=== PATIENT | male | born 1955 | race African-American/Black ===

== ENCOUNTER 2018-05-23 23:19 | Emergency (ER) | payer OTHER ==
[2018-05-24 03:26] LABS: #Basophils 0.1 thou/uL (0.0-0.2); #Eosinphils 0.4 thou/uL (0.0-0.7); #Lymphocytes 2.3 thou/uL (1.20-3.40); #Neutrophils 4.6 thou/uL (1.40-6.50); %Eosinophils 5.1 % (0.0-10.0); %Lymphocytes 27.4 % (21.0-51.0); %Monocytes 12.2 % (0.0-10.0); %Neutrophils 54.4 % (42.0-75.0); Hemoglobin 14.4 g/dL (14.0-18.0); Mean Corpuscular HGB CONC 33.1 g/dL (32.0-36.0); Mean Corpuscular Hemoglobin 30.1 pg (27.0-31.0); Mean Platelet Volume 7.9 fL (7.4-10.4); Platelet Count 250 thou/uL (130-400); RBC Distribution Width 11.2 % (11.5-14.5); Red Blood Cell (RBC) Count 4.77 mill/uL (4.70-6.10); White Blood Cell (WBC) Count 8.5 thou/uL (4.8-10.8)
[2018-05-24] MEDS ORDERED: Lorazepam 2 MG/ML VIAL ONE (03:48)
[2018-05-24] MEDS ORDERED: Lidocaine Viscous Sol 2% 15 ml UD Cup ONE (03:49)
[2018-05-24] MEDS ORDERED: Pantoprazole 40 MG VIAL ONE (03:49)
[2018-05-24] MEDS ORDERED: Mag-Al 1200 mg/1200 mg/30 ML UDCUP ONE (03:49)
[2018-05-24 03:57] LABS: ALT (SGPT) 25 U/L (8-55); AST (SGOT) 18 U/L (5-34); Albumin 4.3 g/dL (3.4-4.8); Alkaline Phosphatase 97 U/L (40-150); Anion Gap 10 mmol/L (10-20); BUN (Urea Nitrogen) 18 mg/dL (8.4-25.7); Bilirubin, Total 0.8 mg/dL (0.2-1.2); Calc. Creatinine Clearance 0 mL/min (70-130); Calcium 9.6 mg/dL (7.8-10.44); Carbon Dioxide 30 mmol/L (23-31); Chloride 101 mmol/L (98-107); Estimated GFR-MDRD Greater than 90; Globulin 3.4 g/dL (2.4-3.5); Glucose 100 mg/dL (80-115); Lipase 6 U/L (8-78); Potassium 3.5 mmol/L (3.5-5.1); Protein, Total 7.7 g/dL (5.8-8.1); Sodium 137 mmol/L (136-145)
--- NOTE | 2018-05-24 07:41 | RAD ---
FEXAM: Two views chest PROVIDED CLINICAL HISTORY: 62-year-old male with dyspnea COMPARISON: None FINDINGS: Cardiac and mediastinal silhouette appears within normal limits. Lungs appear free of significant opa city. No pleural fluid or pneumothorax apparent. IMPRESSION: No evidence for an acute cardiopulmonary process.
--- NOTE | 2018-05-24 09:10 | CT ---
PRELIMINARY REPORT/[facility]/EMERGENCY AFTER HOURS PROCEDURE: EXAM: CT Angiography Chest With Contrast EXAM DATE/TIME: 05/24/2018 4:42 AM CLINICAL HISTORY: 62 years old, male; Signs and symptoms; Dyspnea and shortness of breath; Patient HX: Er 14. SOB; M62 presents to ed with C/O sensation of gas in his upper abdomen / bloating since night after s [place]oulder surgery. Associated with difficulty taking deep breaths, intermittent diffuse abdominal pain, nausea, and vomiting (made himself vomit). No cough, constipation, diarrhea, fever. No HX of blood c lots. TECHNIQUE: Imaging protocol: Axial computed tomographic angiography images of the chest with intravenous contras t using CT angiography protocol. Coronal reformatted images were created and reviewed. 3D rendering: MIP reconstructed images were created and reviewed. COMPARISON: No relevant prior studies available. FINDINGS: Pulmonary arteries: There is no evidence of peripheral filling defects within the pulmonary arterial circulation to suggest pulmonary embolism. Aorta: Normal. No aortic aneurysm. No aortic dissection. Thyroid: The visualized thyroid gland is unremarkable. Lungs: Moderate centrilobular emphysematous changes are present. Pleural space: Normal. No pneumothorax. No pleural effusion. Heart: Normal. No cardiomegaly. No pericardial effusion. Mediastinum: The trachea is normal. There are RIGHT hilar calcifications compatible with prior granul omatous organism exposure. Spleen: The spleen demonstrates punctate calcifications, consistent with remote granulomatous organis m exposure. Lymph nodes: Unremarkable. No enlarged lymph nodes. Bones/joints: Unremarkable. No acute fracture. Soft tissues: Unremarkable. IMPRESSION: 1. There is no CT evidence of acute pulmonary embolism. 2. Moderate centrilobular emphysematous changes are present. Thank you for allowing us to participate in the care of your patient. Dictated and Authenticated by: Kaushik Hunter MD 05/24/2018 5:06 AM Central Time ([place] & [place]) FINAL REPORT CT ANGIOGRAM OF THE CHEST: COMPARISON: 01/20/2016. HISTORY: Status post surgery. Dyspnea. COMPARISON: 01/20/2016. TECHNIQUE: CT angiogram of the chest is performed in the axial plane. Three-dimensional reformatted images are submitted for interpretation. FINDINGS: This report is in agreement with the preliminary report by [facility]. Appropriate contrast opacification o f the pulmonary arterial system to the level of the segmental arteries. No filling defect to suggest thromboembolism. Mild emphysematous changes. Dependent atelectatic changes are noted. IMPRESSION: No evidence of pulmonary artery embolism to the level of the segmental arteries. POS: OFF
--- NOTE | 2018-05-24 09:12 | CT ---
PRELIMINARY REPORT/[facility]/EMERGENCY AFTER HOURS PROCEDURE: EXAM: CT Abdomen and Pelvis With Contrast EXAM DATE/TIME: 05/24/2018 4:42 AM CLINICAL HISTORY: 62 years old, male; Pain; Abdominal pain; Patient HX: Er 14. SOB; M62 presents to ed with C/O sensati on of gas in his upper abdomen / bloating since night after shoulder surgery. Associated wit h difficulty taking deep breaths, intermittent diffuse abdominal pain, nausea, and vomiting (made himself vomit). No cough, constipation, diarrhea, fever. No HX of blood clots. TECHNIQUE: Imaging protocol: Axial computed tomography images of the abdomen and pelvis with intravenous contras t. Coronal reformatted images were created and reviewed. COMPARISON: No relevant prior studies available. FINDINGS: Lower thorax: There is subpleural atelectasis of the dependent portions of the lungs. ABDOMEN: Liver: There are no focal liver lesions identified. Gallbladder and bile ducts: The gallbladder is normal. There is no evidence of biliary ductal dilatio n. The gallbladder is normal. There is no evidence of biliary ductal dilation. Pancreas: The pancreas appears normal. No ductal dilatation. Spleen: The spleen demonstrates punctate calcifications, consistent with remote granulomatous organis m exposure. Adrenals: The adrenal glands are normal. Kidneys and ureters: The kidneys appear normal. No hydronephrosis. Stomach and bowel: The stomach is normal. The duodenum is unremarkable. Appendix: No evidence of appendicitis. PELVIS: Bladder: The bladder is normal. Reproductive: The prostate gland demonstrates moderate nonspecific enlargement. The seminal vesicles are normal. ABDOMEN and PELVIS: Intraperitoneal space: Normal. No free air. No significant fluid collection. Bones/joints: Patient is post lumbosacral spine surgical fusion. Soft tissues: Unremarkable. Vasculature: Normal. No abdominal aortic aneurysm. Lymph nodes: Normal. No enlarged lymph nodes. IMPRESSION: No acute abdominopelvic pathology. Thank you for allowing us to participate in the care of your patient. Dictated and Authenticated by: Kaushik Hunter MD 05/24/2018 5:19 AM Central Time ([place] & [place]) FINAL REPORT ABDOMEN CT WITH CONTRAST PELVIC CT WITH CONTRAST: Date: 05/24/18 HISTORY: Status post surgery. Abdominal pain. FINDINGS: This report is in agreement with the preliminary report by [facility]. Appropriate attenuation and enhancem ent of the solid organs. No evidence of bowel obstruction. No acute abnormality in the abdomen or pel vis. Mild prostate hypertrophy is noted. IMPRESSION: No acute abnormality in the abdomen or pelvis. POS: OFF
[2018-05-24] MEDS ORDERED: ISOVUE-370 76%-LOCM 1 ML ONE (15:04)
== END 2018-05-24 07:20 | disposition home or self-care (01) ==
LOC: ERS 23:19
DX: R14.0 Abdominal distension (gaseous) (principal); R11.2 Nausea with vomiting, unspecified
CPT/HCPCS: 36415; 71046; 71275; 74177; 80053; 83690; 84484; 85025; 93005; 96374; 96375; C9113; J2060; Q9966

== ENCOUNTER 2018-05-24 21:07 | Emergency (ER) | payer OTHER ==
[2018-05-24 21:44] LABS: #Eosinphils 0.3 thou/uL (0.0-0.7); #Lymphocytes 1.8 thou/uL (1.20-3.40); #Monocytes 0.7 thou/uL (0.11-0.59); %Basophils 0.7 % (0.0-1.0); %Eosinophils 5.4 % (0.0-10.0); %Lymphocytes 30.3 % (21.0-51.0); %Monocytes 12.1 % (0.0-10.0); %Neutrophils 51.5 % (42.0-75.0); Hemoglobin 14.6 g/dL (14.0-18.0); Mean Corpuscular HGB CONC 32.2 g/dL (32.0-36.0); Mean Corpuscular Hemoglobin 29.3 pg (27.0-31.0); Mean Corpuscular Volume 90.9 fL (78.0-98.0); Mean Platelet Volume 7.8 fL (7.4-10.4); Platelet Count 271 thou/uL (130-400); RBC Distribution Width 11.2 % (11.5-14.5); Red Blood Cell (RBC) Count 4.98 mill/uL (4.70-6.10); White Blood Cell (WBC) Count 5.9 thou/uL (4.8-10.8)
[2018-05-24 22:05] LABS: ALT (SGPT) 26 U/L (8-55); AST (SGOT) 21 U/L (5-34); Albumin 4.3 g/dL (3.4-4.8); Alkaline Phosphatase 99 U/L (40-150); Anion Gap 9 mmol/L (10-20); BUN (Urea Nitrogen) 14 mg/dL (8.4-25.7); Bilirubin, Total 0.7 mg/dL (0.2-1.2); CK (CPK) 265 U/L (30-200); Calc. Creatinine Clearance 0 mL/min (70-130); Calcium 9.6 mg/dL (7.8-10.44); Carbon Dioxide 29 mmol/L (23-31); Chloride 103 mmol/L (98-107); Estimated GFR-MDRD 87; Globulin 3.4 g/dL (2.4-3.5); Glucose 107 mg/dL (80-115); Potassium 3.9 mmol/L (3.5-5.1); Protein, Total 7.7 g/dL (5.8-8.1); Sodium 137 mmol/L (136-145)
--- NOTE | 2018-05-24 22:34 | RAD ---
FExam: Chest one view HISTORY:Dyspnea Comparison: 01/20/2016 FINDINGS: Lungs: No masses or consolidation. Cardiac silhouette: Normal size Pulmonary vessels: Normal Pleural Spaces: Clear Pneumothorax: None Osseous abnormalities: None of acuity. IMPRESSION: No acute cardiopulmonary process.
[2018-05-25] MEDS ORDERED: Mag-Al 1200 mg/1200 mg/30 ML UDCUP ONE (00:27)
[2018-05-25] MEDS ORDERED: Lidocaine Viscous Sol 2% 15 ml UD Cup ONE (00:27)
== END 2018-05-25 00:35 | disposition home or self-care (01) ==
LOC: ERS 21:07
DX: R06.02 Shortness of breath (principal)
CPT/HCPCS: 36415; 71045; 82550; 93005

== ENCOUNTER 2020-02-04 12:42 | Outpatient (CLI) | payer OTHER ==
--- NOTE | 2020-03-09 14:44 | CCLSPC ---
Lower extremity arterial evaluation on Guillermo Morales using Doppler waveform analysis and segmental limb pressures. Examination of the right leg reveals relatively well-preserved waveforms at the femoral posterior tibial level with an ankle-arm index of 1.14 and a toe-brachial index of 1.11. The left lower extremity demonstrates somewhat abnormal femoral waveform, but a more preserved waveform at the posterior tibial level with an ankle-arm index of 1.19 and a toe-brachial index 0.93. This study shows mild resting arterial insufficiency, but overall, flow is maintained of the lower extremities. This could be consistent with vascular claudication, but an exercise study or CT angiography may be of additional benefit. Job ID: [id number]
== END 2020-02-04 12:43 | disposition home or self-care (01) ==
LOC: ULT 12:42
PROVIDERS: ATTEND Orthopaedic Surgery
DX: I73.9 Peripheral vascular disease, unspecified (principal)
CPT/HCPCS: 93922